=== PATIENT | female | born 1995 | race Caucasian/White ===

== ENCOUNTER 2017-01-27 05:57 | Outpatient (CLI) | payer BC ==
[~2017-01-27] VITALS: Ht 167.6 cm; Wt 117.9 kg
[2017-01-27] MEDS ORDERED: LEVO50TA6 PO (11:58)
[2017-01-27] MEDS ORDERED: VNL75T PO (11:58)
== END 2017-01-27 13:55 ==
LOC: PREOP 05:57
PROVIDERS: ATTEND Otolaryngology Otolaryngology/Facial Plastic Surgery
DX: Z01.818 Encounter for other preprocedural examination (principal); J35.01 Chronic tonsillitis; J03.91 Acute recurrent tonsillitis, unspecified

== ENCOUNTER 2017-02-03 07:11 | Day surgery (SDC) | payer BC ==
[~2017-02-03] VITALS: Ht 167.6 cm; Wt 117.9 kg
[~2017-02-03 07:11] MED LIST: LEVO50TA6 PO; VNL75T PO
[2017-02-03] MEDS ORDERED: LACTATED RINGERS 1,000 ML IV PRN (07:28)
[2017-02-03 08:00] VITALS: BP 123/82
[2017-02-03] MEDS ORDERED: MIDAZOLAM 2 MG/2 ML (VERSED) VIAL IV ONE (08:00)
[2017-02-03 08:17] LABS: BASOPHILS % (AUTO) 1 % (0-10); EOSINOPHILS # (AUTO) 0.2 10^3/uL (0.0-0.3); EOSINOPHILS % (AUTO) 3 % (0-10); LYMPHOCYTES # (AUTO) 1.8 X 10^3 (1.0-4.0); LYMPHOCYTES % (AUTO) 30 % (12-44); MEAN CORPUSCULAR HEMOGLOBIN 29 PG (25-34); MEAN CORPUSCULAR HGB CONC 34 G/DL (32-36); MEAN CORPUSCULAR VOLUME 86 FL (80-99); MEAN PLATELET VOLUME 9.5 FL (7.4-10.4); MONOCYTES # (AUTO) 0.6 X 10^3 (0.0-1.0); MONOCYTES % (AUTO) 9 % (0-12); NEUTROPHILS # (AUTO) 3.5 X 10^3 (1.8-7.8); NEUTROPHILS % (AUTO) 57 % (42-75); PLATELET COUNT 282 10^3/uL (130-400); RED BLOOD COUNT 4.57 10^6/uL (4.35-5.85); RED CELL DISTRIBUTION WIDTH 12.6 % (10.0-14.5); WHITE BLOOD COUNT 6.1 10^3/uL (4.3-11.0)
--- NOTE | 2017-02-03 08:48 | Progress Note-Pre Operative ---
Pre-Operative Progress Note H&P Reviewed The H&P was reviewed, patient examined and no changes noted. Date Seen by Provider: Feb 03, 2017 Time Seen by Provider: 08:00 Date H&P Reviewed: Feb 03, 2017 Time H&P Reviewed: 08:00 Pre-Operative Diagnosis: Rec Tons/ T/A hyper BLANCA SARAVIA MD Feb 03, 2017 8:48 am
[2017-02-03] MEDS ORDERED: proPOfol 200 MG/20 ML (DIPRIVAN) VIAL IV ONE (09:18)
[2017-02-03] MEDS ORDERED: NEOSTIGMINE (BLOXIVERZ ) 1 MG/1ML 10 ML VIAL ONE (09:18)
[2017-02-03] MEDS ORDERED: ROCURONIUM 50 MG/5 ML (ZEMURON) VIAL IV ONE (09:18)
[2017-02-03] MEDS ORDERED: SEVOFLURANE (ULTANE) 15 ML INHAL SOLN ONE (09:18)
[2017-02-03] MEDS ORDERED: fentaNYL INJECTION 100 MCG/2 ML AMP ONE (09:18)
[2017-02-03] MEDS ORDERED: DEXAMETHASONE 10 MG/ML (DECADRON) 1 ML VIAL ONE (09:18)
[2017-02-03] MEDS ORDERED: LIDOCAINE PF 2% 5 ML (XYLOCAINE) VIAL ONE (09:18)
[2017-02-03] MEDS ORDERED: MIDAZOLAM 2 MG/2 ML (VERSED) VIAL ONE (09:18)
[2017-02-03] MEDS ORDERED: GLYCOPYRROLATE 0.2 MG/ML (ROBINUL) 2 ML VIAL ONE (09:18)
[2017-02-03] MEDS ORDERED: ONDANSETRON 4 MG/2 ML (SDV) Z0FRAN ONE (09:18)
[2017-02-03] MEDS ORDERED: NS IV 1000 ML 1,000 ML IV SCH (09:59)
--- NOTE | 2017-02-03 09:59 | Progress Note-Post Operative ---
Post-Operative Progess Note Surgeon (s)/Chicken Dresser (s) Surgeon BLANCA SARAVIA MD Chicken Dresser n/a Pre-Operative Diagnosis Rec Tons/ T/A hyper Post-Operative Diagnosis same Post-Op Procedure Note Date of Procedure: Feb 03, 2017 Name of Procedure Performed: tonsillectomy Description & Findings Description and Findings: n/a Anesthesia Type get Estimated Blood Loss minimal Packing none. Specimen(s) collected/removed tonsils BLANCA SARAVIA MD Feb 03, 2017 9:59 am
[2017-02-03] MEDS ORDERED: APAP 325 MG/10.15 ML LIQ (TYLENOL) UDC PO PRN (10:00)
[2017-02-03] MEDS ORDERED: HYDROcodone/APAP 7.5MG-325 MG/15 ML (LORTAB) UDC PO PRN (10:00)
[2017-02-03] MEDS ORDERED: morphine INJ 10 MG/ML 1ML (SYR OR VIAL) ONE (10:07)
[2017-02-03] MEDS: morphine INJ 10 MG/ML 1ML (SYR OR VIAL) IVP PRN ×2 (10:11→10:15)
[2017-02-03] MEDS ORDERED: ONDANSETRON 4 MG/2 ML (SDV) Z0FRAN IVP PRN (10:30)
[2017-02-03] MEDS ORDERED: MEPERIDINE (DEMEROL) INJ 50 MG/ML IVP PRN (10:30)
[2017-02-03 10:50] VITALS: BP 105/59
[2017-02-03 11:20] VITALS: BP 106/59
[2017-02-03 11:50] VITALS: BP 109/60
[2017-02-03] MEDS ORDERED: HYDR15SO8 PO (12:42)
[2017-02-03] MEDS ORDERED: DEXAINTSOL PO (12:42)
[2017-02-03] MEDS ORDERED: AMOX250S5 PO (12:42)
[2017-02-03] MEDS ORDERED: TETRACAINESUCKERS MT (12:42)
[2017-02-03 13:05] VITALS: BP 109/60
== END 2017-02-03 13:05 | disposition home or self-care (01) ==
LOC: SDC 07:11
PROVIDERS: ATTEND Otolaryngology Otolaryngology/Facial Plastic Surgery
DX: J35.01 Chronic tonsillitis (principal); E05.00 Thyrotoxicosis with diffuse goiter without thyrotoxic crisis or storm; R01.1 Cardiac murmur, unspecified; F41.9 Anxiety disorder, unspecified; E66.9 Obesity, unspecified; Z68.41 Body mass index [BMI] 40.0-44.9, adult; Z79.899 Other long term (current) drug therapy
CPT/HCPCS: 36415; 84703; 85025; 87081